=== PATIENT | female | born 1990 | race Hispanic/Latino ===

== ENCOUNTER 2022-10-30 08:26 | Inpatient (IN) | payer SELFPAY ==
--- OUTSIDE RECORDS SUMMARY | 2022-10-30 08:39 | XMS REPORT | Continuity of Care Document ---
:1990 Author Organization [facility] t Address [address] [place] [address] Dr. Anton [address] [place] [address] Care Team Providers Name Role Phone BORA TORRES Attending Clinician Unavailable Giovani WHCNJulee Bailey Attending Clinician [phone] Bora Garcia Attending Clinician Doctor Unassigned, [place] Attending Clinician Unavailable Visit, [facility] Nurse Attending Clinician Unavailable Payers Payer Name Policy Type Policy Number Effective Date Expiration Date S shantel [facility] [id number] 2018 00:00:00 Problems Condition Condition Condition Status Onset Resolution Last Treating Co mments Source Name Details Category Date Date Treatment Clinician Date Irregular Irregular Disease Active Uni vers menstrual menstrual 2-24 ity of cycle cycle 00:00: [address] PMS PMS Disease Active Univers (premenstr (premenstr 2-24 it y of ual ual 00:00: [place] syndrome) syndrome) 00 [facility] Well woman Well woman Disease Active U nivers exam exam - ity of 00:00: [address] Encounter Encounter Disease Active Uni vers for for 11-05 ity of [place] jabari 00 Medical management management Br anch , , unspecifie unspecifie d type d type Nexplanon Nexplanon Disease Active Uni vers insertion insertion - ity of 00:00: [address] BMI BMI Disease Active 2018- Univers 28.0-28.9, 28.0-28.9, 1-31 it y of adult adult 00:00: [address] PCOS PCOS Problem Active 2022-01-05 Memor 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) Active Problem 01/05/2022 [facility] [place] Exercise Exercise Problem Active 2022-01-05 Memoria counseling counseling 02:45:34 l Active [employer] Problem 01/05/2022 [facility] [place] Dietary Dietary Problem Active 2022-01-05 Me moria counseling counseling 02:45:34 l Active [place] Problem 01/05/2022 [facility] [place] History of History Problem Active 2022-01-05 Memoria ovarian of ovarian 02:45:34 l cyst cyst [place] Active Problem 01/05/2022 [facility] [place] History of History Problem Active 2022-01-05 Memoria cystitis of 02:45:34 l cystitis [employer] Active Problem 01/05/2022 [facility] [place] Vitamin D Vitamin D Problem Active 2022-01-05 Memoria deficiency deficiency 02:45:34 l Active [employer] Problem 01/05/2022 [facility] [place] Encounter Encounter Problem Active 2022-01-05 Memoria for annual for annual 02:45:34 l routine routine Vin gynecologi gynecologi tracie tracie examinatio examinatio n n Active Problem 01/05/2022 [facility] [place] Abnormal Abnormal Problem Active 2022-01-05 Memoria TSH TSH Active 02:45:34 l Problem [employer] 01/05/2022 [facility] [place] Screening Screening Problem Active 2022-01-05 Memoria for HPV for HPV 02:45:34 l (human (human [employer] [place] papillomav papillomav irus) irus) Active Problem 01/05/2022 [facility] [place] Cyst of Cyst of Problem Active 2022-01-05 M emoria ovary, ovary, 02:45:34 l right right [employer] Active Problem 01/05/2022 [facility] [place] Pelvic Pelvic Problem Active 2022-01-05 Sukhdeep elizabeth cramping cramping 02:45:34 l Active [employer] Problem 01/05/2022 [facility] [place] Problem Active 2022-01-05 Memor ia control control 02:45:34 l counseling counseling He rmann Active Problem 01/05/2022 [facility] [place] Allergies, Adverse Reactions, Alerts Allergy Allergy Status Severity Reaction(s) Onset Inactive Treating Comm ents Source Name Type Date Date Clinician NO KNOWN Drug Active Univers ALLERGIE Class ity of S [facility] Social History Social Habit Start Date Stop Date Quantity Comments Source History of Cigarette Smoker Universi ty of tobacco use [facility] Sex Assigned At Universit y of [facility] Alcohol intake 2019-11-29 2019-11-29 University of 00:00:00 00:00:00 [facility] Tobacco Comment 2018-11-05 2018-11-05 social smoker Univer sity of 00:00:00 00:00:00 [facility] Alcohol Comment 2018-11-05 2018-11-05 social drinker Unive rsity of 00:00:00 00:00:00 [facility] Smoking Status Start Date Stop Date Source Current some day smoker 2019-11-29 00:00:00 [facility] Ordered Filled Start Stop Current Ordering Indication Dosage Frequency Signature Comments Components Source Medication Medication Date Date Medication? Clinician (SIG) Name Name norgestimat Yes [id number] 1{tbl} Take 1 Univers e-ethinyl 7-26 tablet by ity o f estradiol 00:00: mouth [place] (ORTHO 00 daily. [facility] 28,) 0.18/0.215/ 0.25 mg-35 mcg (28) tablet norgestimat Yes [id number] 1{tbl} Take 1 Univers e-ethinyl 7-26 tablet by ity o f estradiol 00:00: mouth [place] [facility] 00 [facility] [address] 0.18/0.215/ 0.25 mg-35 mcg (28) tablet norgestimat Yes [id number] 1{tbl} Take 1 Univers e-ethinyl 7-26 tablet by ity o f estradiol 00:00: mouth [place] (ORTHO 00 daily. [facility] 0.18/0.215/ 0.25 mg-35 mcg (28) tablet norgestimat Yes [id number] 1{tbl} Take 1 Univers e-ethinyl 7-26 tablet by ity o f estradiol 00:00: mouth [place] (ORTHO 00 daily. [facility] [address],) 0.18/0.215/ 0.25 mg-35 mcg (28) tablet norgestimat Yes [id number] 1{tbl} Take 1 Univers e-ethinyl 7-26 tablet by ity o f estradiol 00:00: mouth [place] (ORTHO 00 daily. [facility] [address],) 0.18/0.215/ 0.25 mg-35 mcg (28) tablet norgestimat Yes [id number] 1{tbl} Take 1 Univers e-ethinyl 7-26 tablet by ity o f estradiol 00:00: mouth [place] (ORTHO 00 daily. [facility] [address],) 0.18/0.215/ 0.25 mg-35 mcg (28) tablet norgestimat Yes [id number] 1{tbl} Take 1 Univers e-ethinyl 4-25 tablet by ity o f estradiol 00:00: mouth [place] (ORTHO 00 daily. [place] [address],) 0.18/0.215/ 0.25 mg-35 mcg (28) tablet norgestimat 2019- No [id number] 1{tbl} Take 1 Univers e-ethinyl 4-25 07-26 tablet by ity of estradiol 00:00: 00:00 mouth [place] (ORTHO 00 :00 daily. [place] [address],) 0.18/0.215/ 0.25 mg-35 mcg (28) tablet Vital Signs Vital Name Observation Time Observation Value Comments Source Systolic blood 2019-11-29 20:33:00 106 mm[facility]Hg[facility] Diastolic blood 2019-11-29 20:33:00 72 mm[Hg] [facility] [place] Heart rate 2019-11-29 20:33:00 74 /min [facility] Body temperature 2019-11-29 20:33:00 36.67 [facility] Respiratory rate 2019-11-29 20:33:00 16 /min [facility] Body height 2019-11-29 20:33:00 152.4 cm [facility] Body weight 2019-11-29 20:33:00 65.8 kg [facility] BMI 2019-11-29 20:33:00 28.33 [facility] Systolic blood 2019-04-30 14:42:00 98 mm[Hg] Univer sity of pressure [facility] Diastolic blood 2019-04-30 14:42:00 62 mm[Hg] Unive rsity of [facility] Heart rate 2019-04-30 14:42:00 64 /min [facility] Respiratory rate 2019-04-30 14:42:00 16 /min [facility] Body height 2019-04-30 14:42:00 152.4 cm [facility] Body weight 2019-04-30 14:42:00 67.728 kg [facility] BMI 2019-04-30 14:42:00 29.16 kg/m2 [facility] Weight 2022-01-04 15:30:00 [facility] [employer] [place] Height 2022-01-04 15:30:00 [facility] [place] Diastolic (mm Hg) 2022-01-04 15:30:00 Mem orial [employer] [place] Systolic (mm Hg) 2022-01-04 15:30:00 Sukhdeep rial [place] Weight 2021-11-19 20:00:00 [facility] [place] Height 2021-11-19 20:00:00 [facility] Diastolic (mm Hg) 2021-11-19 20:00:00 Mem orial [employer] [place] Systolic (mm Hg) 2021-11-19 20:00:00 Sukhdeep rial [facility] Procedures Procedure Date / Time Performing Clinician Source Performed ASSIGNMENT OF BENEFITS 2019-11-29 19:52:09 Doctor Unassigned, [facility] [place] [facility] NO SHOW OR MISSED 2019-04-30 14:34:46 Doctor Unassigned, [facility] APPOINTMENT POLICY [place] [facility] ACKNOWLEDGEMENT Encounters Start End Encounter Admission Attending Care Care Encounter Source Date/Time Date/Time Type Type Clinicians Facility Department ID 2022-10-30 Outpatient [id number] Memoria 08:34:30 [id number] Vin [id number] 2022-01-04 2022-01-04 Outpatient Jasen Griffin [id number] [facility] 10:30:00 10:30:00 Brian AVILEZ 2021-11-19 2021-11-19 Outpatient Jasen Griffin [id number] [facility] 14:00:00 14:00:00 Brian AVILEZ 2019-12-14 2019-12-14 Outpatient Mack TORRES [place] [id number] Univers 13:00:00 13:00:00 BORA young [facility] 2019-11-29 2019-11-29 Office Julee Matute [facility] [id number] Univers 13:55:16 15:21:48 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 [id number] ity of [facility] [id number] Per as MATERNAL [phone] Med ical & CHILD [address] [place] [address] 2019-11-29 2019-11-29 Outpatient Mack TORRES [place] [id number] Univers 13:30:00 13:30:00 BORA young [facility] 2019-11-29 2019-11-29 Orders Doctor JONATHAN [id number] Univers 00:00:00 00:00:00 Only Unassigned, SERGE 350.1.13.10 ity of [place] [facility] 4.2.7.2.686 Per as [phone] [facility] [address] [place] [facility] 2019-05-12 2019-05-12 Patient Doctor JONATHAN [id number] Univers 00:00:00 00:00:00 Secure Msg Unassigned, SERGE [id number] ity of [place] [facility] 4.2.7.2.686 Per as [phone] [facility] [address] [place] [facility] 2019-04-30 2019-04-30 Nurse Visit, [facility] Nurse [facility] [id number] .[id number] Univers 09:35:43 10:00:12 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
[2022-10-30] MEDS ORDERED: MORPHINE 4 MG/ML SYR ONE ×2 (09:13→13:03)
[2022-10-30] MEDS ORDERED: ONDANSETRON 4 MG/2 ML VIAL ONE ×2 (09:14→13:03)
[2022-10-30] MEDS ORDERED: NA CHLORIDE 0.9% 1,000 ML ONE (09:14)
[2022-10-30 09:35] LABS: Hematocrit 39.1 % (36.0-45.0); Lymphocytes % 9.8 % (15.3-44.8); MCV 81.4 fL (80-100); MPV 7.3 fL (7.6-11.3)
[2022-10-30 09:58] LABS: Albumin 4.2 g/dL (3.4-5.0); Bilirubin Total 0.7 mg/dL (0.2-1.0); Potassium 3.4 mmol/L (3.5-5.1); Protein, Total 7.6 g/dL (6.4-8.2)
[2022-10-30 10:14] LABS: Urine Blood Trace-intact (Negative); Urine Glucose Negative (Negative); Urine Protein Negative (Negative); Urine Specific Gravity >=1.030 (1.005-1.030)
[2022-10-30 10:28] LABS: Urine Specific Gravity/Preg >1.030 (1.005-1.030)
--- NOTE | 2022-10-30 10:52 | RAD REPORT ---
EXAM DESCRIPTION: CT - Abdomen Pelvis W Contrast - 10/30/2022 10:26 am CLINICAL HISTORY: Abdominal pain COMPARISON: none. TECHNIQUE: Computed axial tomography of the abdomen pelvis was obtained. 100 cc Isovue-300 was admin istered intravenously. Oral contrast was not requested which limits evaluation of bowel and appendix All CT scans are performed using dose optimization technique as appropriate and may include automated exposure control or mA/KV adjustment according to patient size. FINDINGS: Multiple gallstones. Gallbladder wall borderline thickened. Borderline dilatation intra an d extrahepatic biliary tree. A small splenic cyst. The pancreas, adrenals, kidneys unremarkable The liver, spleen, pancreas, adrenal and kidneys appear unremarkable. There is no evidence of diverticulitis. Normal appendix. 2 centimeter irregularly-shaped right ovarian cyst likely has recently ruptured. No significant free fluid IMPRESSION: Cholelithiasis Borderline gallbladder wall thickening may indicate cholecystitis Borderline dilatation intra and extrahepatic biliary tree 2 centimeter irregularly-shaped right ovarian cyst likely has recently ruptured. No significant free fluid
--- NOTE | 2022-10-30 10:53 | RAD REPORT ---
EXAM DESCRIPTION: US - Abdomen Exam Limited - 10/30/2022 9:21 am CLINICAL HISTORY: Abdominal pain. COMPARISON: None. FINDINGS: Multiple gallstones. Borderline gallbladder wall thickening Borderline dilatation of the intra and extrahepatic biliary tree IMPRESSION: Cholelithiasis. Borderline gallbladder wall thickening may indicate cholecystitis Borderline dilatation of the intra and extrahepatic biliary tree
[2022-10-30] MEDS ORDERED: PIPERACIL/TAZO 3.375 GM VIAL IV ONE (11:12)
[2022-10-30] MEDS ORDERED: NA CHLORIDE 0.9% 100 ML ONE (11:12)
--- NOTE | 2022-10-30 11:15 | ER ---
Nurse's Notes [facility] Name: Coco Davis Age: 31 yrs Sex: Female : 1990 Arrival Date: 10/30/2022 Time: 08:28 Bed 14 Private MD: Diagnosis: Acute cholecystitis Presentation: 10/30 08:45 Chief complaint: Patient states: she has right upper quadrant pain that started at ap3 approx 0530 this morning. patient also reports nausea and vomiting that accompanies the pain. patient states her last BM was 2 days ago, which was normal for her. patient reports that nothing makes the pain better and nothing makes it worse either. Coronavirus screen: At this time, the client does not indicate any symptoms associated with coronavirus-19. Ebola Screen: No symptoms or risks identified at this time. Initial Sepsis Screen: Does the patient meet any 2 criteria? No. Patient's initial sepsis screen is negative. Does the patient have a suspected source of infection? No. Patient's initial sepsis screen is negative. Risk Assessment: Do you want to hurt yourself or someone else? Patient reports no desire to harm self or others. Onset of symptoms was October 30, 2022 at 05:30. 08:45 Method Of Arrival: Ambulatory ap3 08:45 Acuity: LUPE 3 ap3 Triage Assessment: 08:48 General: Appears in no apparent distress. Behavior is calm, cooperative. Pain: ap3 Complains of pain in right upper quadrant Pain currently is 10 out of 10 on a pain scale. Pain began 0530 this morning. Neuro: Level of Consciousness is awake, alert, obeys commands, Oriented to person, place, time, situation. Cardiovascular: Patient's skin is warm and dry. Respiratory: Airway is patent Respiratory effort is even, unlabored. GI: Reports upper abdominal pain, nausea, vomiting. 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 - Social history:: Smoking status: Patient denies any tobacco usage or history of. Screenin:49 [facility] ED Fall Risk Assessment (Adult) History of falling in the last 3 months, ap3 including since admission No falls in past 3 months (0 pts). Abuse screen: Denies threats or abuse. Nutritional screening: No deficits noted. Tuberculosis screening: No symptoms or risk factors identified. Assessment: 08:50 GI: Bowel sounds present X 4 quads. Abd is soft Abdomen is tender to palpation in right ap3 upper quadrant. 14:26 Reassessment: report called to receiving nurse. ap3 Vital Signs: 08:45 BP 122 / 71; Pulse 54; Resp 17; Temp 98.0(O); Pulse Ox 100% ; Weight 63.5 kg; Height 5 ap3 ft. 0 in. (152.40 cm); Pain 10/10; 10:20 BP 123 / 81; Pulse 64; Pulse Ox 100% ; ap3 13:07 BP 114 / 59; Pulse 74; Pulse Ox 99% on R/A; ap3 08:45 Body Mass Index 27.34 (63.50 kg, 152.40 cm) ap3 ED Course: 08:28 Patient arrived in ED. mr 08:32 Velasquez Shepherd PA is PHCP. jmm 08:32 Syed Rendon MD is Attending Physician. jmm 08:45 Jordana Patel, JORDYN is Primary Nurse. ap3 08:48 Triage completed. ap3 08:49 Arm band placed on right wrist. ap3 08:49 Patient has correct armband on for positive identification. Bed in low position. Call ap3 light in reach. Side rails up X 1. Pulse ox on. NIBP on. Door closed. Noise minimized. 09:22 US Abdomen Limited In Process Unspecified. EDMS 09:27 Inserted saline lock: 20 gauge in right antecubital area, using aseptic technique. ap3 Blood collected. 10:[address] via wheelchair. ap3 10:28 CT Abd/Pelvis - IV Contrast Only In Process Unspecified. EDMS 10:30 Patient moved back from CT. ap3 11:15 Ravin Brink MD is Hospitalizing Provider. jmm 12:39 SARS RAPID Sent. ap3 14:01 No provider procedures requiring assistance completed. Patient admitted, IV remains in ap3 place. Administered Medications: 09:27 Drug: NS 0.9% 1000 ml Route: IV; Rate: 1 bolus; Site: right antecubital; ap3 11:18 Follow up: IV Status: Completed infusion; IV Intake: 1000ml ap3 09:27 Drug: Zofran (Ondansetron) 4 mg Route: IVP; Site: right antecubital; ap3 10:10 Follow up: Response: No adverse reaction ap3 09:27 Drug: morphine 4 mg Route: IVP; Infused Over: 4 mins; Site: right antecubital; ap3 11:56 Follow up: Response: No adverse reaction; Pain is decreased ap3 11:18 Drug: Zosyn (piperacillin-tazobactam) 3.375 grams Route: IVPB; Infused Over: 60 mins; ap3 Site: right antecubital; 11:56 Follow up: IV Status: Completed infusion; IV Intake: 100ml ap3 13:05 Drug: morphine 4 mg Route: IVP; Infused Over: 4 mins; Site: right antecubital; ap3 14:02 Follow up: Response: No adverse reaction; Pain is decreased ap3 13:05 Drug: Zofran (Ondansetron) 4 mg Route: IVP; Site: right antecubital; ap3 14:03 Follow up: Response: No adverse reaction; Nausea is decreased ap3 Medication: 08:49 VIS not applicable for this client. ap3 Intake: 11:18 IV: 1000ml; Total: 1000ml. ap3 11:56 IV: 100ml; Total: 1100ml. ap3 Outcome: 11:15 Decision to Hospitalize by Provider. matt 14:01 Admitted to ER Hold. Please see [facility] for further documentation. ap3 14:01 Condition: good 14:49 Patient left the ED. ap3 Signatures: Dispatcher [employer] EDMS Velasquez Shepherd PA PA jmm SpencerKenyatta mr Jordana Patel, RN RN ap3
--- NOTE | 2022-10-30 11:15 | EDPHYS ---
Physician Documentation [facility] Name: Coco Davis Age: 31 yrs Sex: Female : 1990 Arrival Date: 10/30/2022 Time: 08:28 Bed 14 Private MD: ED Physician Syed Rendon HPI: 10/30 08:46 This 31 yrs old Female presents to ER via Ambulatory with complaints of jmm Abdominal Pain, Nausea/Vomiting/Diarrhea, Back Pain. 08:46 The patient presents with abdominal pain. Onset: The symptoms/episode began/occurred jmm acutely, this morning. The symptoms radiate to right back. This is a 31 year old female with no chronic medical conditions that presents to the ED with complaints of epigastric pain beginning acutely this morning around 0500. Patient has had similar episodes over the past 2 months. Denies diarrhea. . 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 - Social history:: Smoking status: Patient denies any tobacco usage or history of. ROS: 08:46 Constitutional: Negative for fever, chills, and weight loss, Cardiovascular: Negative jmm for chest pain, palpitations, and edema, Respiratory: Negative for shortness of breath, cough, wheezing, and pleuritic chest pain. 08:46 Abdomen/GI: Positive for abdominal pain, nausea and vomiting. 08:46 All other systems are negative. Exam: 08:46 Constitutional: This is a well developed, well nourished patient who is awake, alert, jmm and in no acute distress. Head/Face: atraumatic. Eyes: EOMI, no conjunctival erythema appreciated ENT: Moist Mucus Membranes Neck: Trachea midline, Supple Chest/axilla: Normal chest wall appearance and motion. Cardiovascular: Regular rate and rhythm. No edema appreciated Respiratory: Normal respirations, no respiratory distress appreciated 08:46 Back: Normal ROM Skin: General appearance color normal MS/ Extremity: Moves all extremities, no obvious deformities appreciated, no edema noted to the lower extremities Neuro: Awake and alert Psych: Behavior is normal, Mood is normal, Patient is cooperative and pleasant 08:46 Abdomen/GI: Inspection: abdomen appears normal, Bowel sounds: normal, Palpation: soft, moderate abdominal tenderness, in the right upper quadrant, Indicators: Boucher's sign is positive. Vital Signs: 08:45 BP 122 / 71; Pulse 54; Resp 17; Temp 98.0(O); Pulse Ox 100% ; Weight 63.5 kg; Height 5 ap3 ft. 0 in. (152.40 cm); Pain 10/10; 10:20 BP 123 / 81; Pulse 64; Pulse Ox 100% ; ap3 13:07 BP 114 / 59; Pulse 74; Pulse Ox 99% on R/A; ap3 08:45 Body Mass Index 27.34 (63.50 kg, 152.40 cm) ap3 MDM: 08:46 Patient medically screened. [facility] 11:03 Data reviewed: vital signs, nurses notes. Consideration of Admission/Observation [facility] Patient was admitted/placed on observation. Management of patient was discussed with the following: young. I considered the following discharge prescriptions or medication management in the emergency department Medications were administered in the Emergency Department. See MAR. Counseling: I had a detailed discussion with the patient and/or guardian regarding: the historical points, exam findings, and any diagnostic results supporting the discharge/admit diagnosis, lab results, radiology results, the need for further work-up and treatment in the hospital. 10/30 08:49 Order name: CBC with Diff; Complete Time: 09:45 [facility] 10/30 08:49 Order name: CMP; Complete Time: 09:59 [facility] 10/30 08:49 Order name: Lipase; Complete Time: 09:59 [facility] 10/30 10:14 Order name: Urine Dipstick-Ancillary; Complete Time: 10:14 EDMS 10/30 10:15 Order name: Urine --Ancillary (enter results); Complete Time: 10:32 bd 10/30 12:20 Order name: SARS RAPID; Complete Time: 13:07 ap3 10/30 08:54 Order name: CT Abd/Pelvis - IV Contrast Only; Complete Time: 10:56 [facility] 10/30 08:54 Order name: US Abdomen Limited; Complete Time: 10:56 [facility] 10/30 08:49 Order name: IV Saline Lock; Complete Time: 09:27 [facility] 10/30 08:49 Order name: Labs collected and sent; Complete Time: 09:27 [facility] 10/30 08:49 Order name: Urine Test (obtain specimen); Complete Time: 10:10 [facility] Administered Medications: 09:27 Drug: NS 0.9% 1000 ml Route: IV; Rate: 1 bolus; Site: right antecubital; ap3 11:18 Follow up: IV Status: Completed infusion; IV Intake: 1000ml ap3 09:27 Drug: Zofran (Ondansetron) 4 mg Route: IVP; Site: right antecubital; ap3 10:10 Follow up: Response: No adverse reaction ap3 09:27 Drug: morphine 4 mg Route: IVP; Infused Over: 4 mins; Site: right antecubital; ap3 11:56 Follow up: Response: No adverse reaction; Pain is decreased ap3 11:18 Drug: Zosyn (piperacillin-tazobactam) 3.375 grams Route: IVPB; Infused Over: 60 mins; ap3 Site: right antecubital; 11:56 Follow up: IV Status: Completed infusion; IV Intake: 100ml ap3 13:05 Drug: morphine 4 mg Route: IVP; Infused Over: 4 mins; Site: right antecubital; ap3 14:02 Follow up: Response: No adverse reaction; Pain is decreased ap3 13:05 Drug: Zofran (Ondansetron) 4 mg Route: IVP; Site: right antecubital; ap3 14:03 Follow up: Response: No adverse reaction; Nausea is decreased ap3 Disposition: 14:56 Co-signature as Attending Physician, Syed Rendon MD I reviewed the patient's care rt provided by the Advanced Practice Provider and agree with the diagnosis and treatment plan. Disposition Summary: 10/30/22 11:15 Hospitalization Ordered Hospitalization Status: Inpatient Admission [facility] Provider: Ravin Brink Condition: Stable jm Problem: new jmm Symptoms: are unchanged [facility] Bed/Room Type: Standard [facility] Location: [facility](10/30/22 13:44) dw Room Assignment: [facility]-(10/30/22 13:44) dw Diagnosis - Acute cholecystitis [facility] Forms: - Medication Reconciliation Form m - SBAR form [facility] Signatures: Dispatcher [facility] Anusha Ascencio RN RN dw Velasquez Shepherd PA PA jmm Prokisch, Amanda, RN RN ap3 Syed Rendon MD MD rt Corrections: (The following items were deleted from the chart) 11:15 Telemetry/MedSurg (Inpatient) matt conn 11:15 cielo conn
[2022-10-30 12:50] LABS: SARS-CoV-2 Antigen Rapid Res Negative (Negative)
[2022-10-30] MEDS ORDERED: ONDANSETRON 4 MG/2 ML VIAL IV PRN (13:06)
[2022-10-30] MEDS ORDERED: ACETAMINOPHEN 500 MG TAB PO PRN (13:06)
[2022-10-30 13:24] VITALS: O2SAT 100; BMI 27.3
[2022-10-30] MEDS ORDERED: D5 0.45 NS 1,000 ML IV ONE (13:44)
[2022-10-30] MEDS ORDERED: D5 0.45 NS 1,000 ML IV SCH ×2 (14:00→18:00)
[2022-10-30] MEDS ORDERED: PIPER TAZO 3.375 GM in NA CHLORIDE 0.9% 100 ML IV SCH (17:00)
[2022-10-30] MEDS ORDERED: ONDANSETRON 4 MG (ODT) TAB PO PRN (17:07)
[2022-10-30] MEDS: HYDROCODONE/APAP 7.5/325 MG TAB PO PRN ×2 (17:47→21:43)
[2022-10-31] MEDS: PIPER TAZO 3.375 GM in NA CHLORIDE 0.9% 100 ML IV SCH ×2 (01:00→08:57)
[2022-10-31] MEDS: HYDROCODONE/APAP 7.5/325 MG TAB PO PRN ×2 (04:00→09:19)
[2022-10-31 04:27] LABS: Absolute Lymphocytes (CBC) 1.9 K/uL (0.7-4.9); Hematocrit 35.6 % (36.0-45.0); Lymphocytes % 34.5 % (15.3-44.8); MCV 82.3 fL (80-100); MPV 7.4 fL (7.6-11.3); RBC Red Blood Cell Count 4.32 M/uL (3.86-4.86)
[2022-10-31 04:40] LABS: Albumin 3.5 g/dL (3.4-5.0); Bilirubin Direct 0.2 mg/dL (0-0.2); Bilirubin Total 0.9 mg/dL (0.2-1.0); Magnesium 2.1 mg/dL (1.6-2.4); Phosphorus 4.1 mg/dL (2.5-4.9); Potassium 4.2 mmol/L (3.5-5.1); Protein, Total 6.3 g/dL (6.4-8.2)
[2022-10-31] MEDS ORDERED: PANTOPRAZOLE 40MG TABLET PO SCH (07:30)
[2022-10-31 07:39] VITALS: BP 103/54; TEMP 98.5
--- NOTE | 2022-11-02 18:50 | HP ---
Date of Admission: 10/30/2022 Brief History Of Present Illness: The patient is a 31-year-old female who has a longstanding history of recurrent epigastric and right upper quadrant abdominal pain, which has occurred several times ov er the past year approximately. She has been getting more increased frequency over the past 2 months . Occasionally, she states that these episodes would be associated with bloating in the left upper q uadrant as well. It was associated with nausea and after eating particularly greasy meals. She note d nausea, vomiting, diarrhea on occasion and some back pain associated as well. Her similar episodes before in the past were similar, but did not have the same level of intensity as such came to the em ergency room with the above-stated complaints. Past Medical History: Denies. Past Surgical History: Denies. Allergies: NO KNOWN DRUG ALLERGIES. Medications: None. Social History: She denies alcohol, tobacco, recreational drug use. Review of Systems: Ten-point review of systems other than HPI, denies. Physical Examination: Vital Signs: Blood pressure of 123/81, pulse 64, respiratory rate 17, temperature 98.0. General: She is awake, alert, oriented. Psychiatric: Appropriate, conversive. HEENT: She is normocephalic. Sclerae anicteric. Mucous membranes moist. Oropharynx clear. Neck: Supple. No JVD. Chest: Normal expansion and excursion. Cardiovascular: Regular rate and rhythm. Pulmonary: Clear to auscultation bilaterally. Abdomen: Soft with mild epigastric tenderness to palpation. Negative Boucher sign. No rebound. No guarding. No focal peritonitis. Remainder of abdominal examination is unremarkable. Extremities: No clubbing, cyanosis, edema. Skin: Warm and dry. Laboratory Data: White blood cell count 10.6, hemoglobin 13.2, hematocrit 39.1, platelet count 352, neutrophils 85%. Her sodium is 139, potassium 3.4, chloride 107, carbon dioxide 25, BUN 10, creatini ne 0.5, glucose is 114, total bilirubin 0.7, AST 28, ALT 32, alkaline phosphatase 78, lipase 77. UA was essentially negative. She had imaging performed, which included an abdominal ultrasound which wa s officially read as cholelithiasis. There is borderline gallbladder wall thickening which may indic ate cholecystitis, borderline dilatation of intra and extrahepatic biliary tree. She had a followup CT of the abdomen and pelvis similarly which was officially read as cholelithiasis, borderline gallbl adder wall thickening, may indicate cholecystitis, borderline dilatation of the intrahepatic biliary tree. 2 cm irregular-shaped right ovarian cyst, likely is recently ruptured. No significant free fl uid. Assessment And Plan: This is a 31-year-old female who presents with signs and symptoms of biliary co lic. 1.IV fluid hydration. 2.Antibiotic coverage. 3.I have explained the risks, benefits, alternatives of laparoscopic possible open cholecystectomy i ncluding but not limited to bleeding, infection, damage to surrounding tissues, injury to bile ducts, intestines, need for further operative procedures. The patient would like to trial a p.o. challenge as she feels significantly better at this point and would like to ultimately be discharged and discu ss surgical intervention at an outpatient at another date. I have agreed with the above-stated plan and agree to proceed as indicated. FARIDA/PARVIN Voice ID: [id number]
== END 2022-10-31 11:10 | disposition home or self-care (01) | DRG 446 ==
LOC: ER 08:26 → ERHOLD 13:05 → 2ND-WC 14:22
PROVIDERS: ADMIT Surgery; ATTEND Surgery
DX: K80.00 Calculus of gallbladder with acute cholecystitis without obstruction (principal); N83.201 Unspecified ovarian cyst, right side; Z28.310 Unvaccinated for COVID-19; Z20.822 Contact with and (suspected) exposure to COVID-19
CPT/HCPCS: 36415; 74177; 76705; 80053; 80076; 81003; 81025; 83690; 83735; 84100; 85025; 87811; 96361; 96365; 96375; 99285; J2405; J2543; J7030; J7799; Q9967